=== PATIENT | male | born 1985 | race Caucasian/White ===

== ENCOUNTER 2018-11-02 16:01 | Emergency (ER) | payer SELFPAY ==
[~2018-11-02] VITALS: Ht 170.2 cm; Wt 61.4 kg
[2018-11-02 16:02] VITALS: BP 143/93
[2018-11-02] MEDS ORDERED: BACTRIM 160MG/800MG DS TAB PO ONE (16:30)
[2018-11-02] MEDS ORDERED: BACT800T5 PO (16:32)
[2018-11-02] MEDS ORDERED: IBUPROFEN 800 MG TAB As Ordered ONE (16:34)
[2018-11-02] MEDS ORDERED: IBUPROFEN 800 MG TAB PO ONE (16:45)
== END 2018-11-02 16:55 | disposition home or self-care (01) ==
LOC: M ED 16:01
DX: L03.119 Cellulitis of unspecified part of limb (principal); I48.91 Unspecified atrial fibrillation; I25.10 Atherosclerotic heart disease of native coronary artery without angina pectoris; F17.210 Nicotine dependence, cigarettes, uncomplicated